=== PATIENT | male | born 1970 | race Caucasian/White ===

== ENCOUNTER 2017-09-19 15:07 | Emergency (ER) | payer MEDICAID ==
[~2017-09-19] VITALS: Ht 172.7 cm; Wt 61.7 kg
[~2017-09-19 15:07] MED LIST: ASPIRIN ADULT L81 M5 PO; DIA5 PO; FERROUS SULFAT325 M2 PO; GLIPIZIDE10 MG PO; GLU500 PO; METFORMIN HCL850 MG PO; PRAVASTATIN SOD20 M1 PO; VITAMIN D2400 I1 PO; ZESTRIL5 MG PO; [UNRECOGNIZED DRUG - OTHER] PO
[2017-09-19 15:08] VITALS: Ht 172.7 cm; Wt 61.7 kg
[2017-09-19 15:28] VITALS: BP 145/86
== END 2017-09-19 16:54 | disposition home or self-care (01) ==
LOC: ED 15:07
DX: S61.213A Laceration without foreign body of left middle finger without damage to nail, initial encounter (principal); I10 Essential (primary) hypertension; E11.9 Type 2 diabetes mellitus without complications; E78.00 Pure hypercholesterolemia, unspecified; W22.8XXA Striking against or struck by other objects, initial encounter; Y93.39 Activity, other involving climbing, rappelling and jumping off; Y99.8 Other external cause status; Y92.89 Other specified places as the place of occurrence of the external cause
CPT/HCPCS: 90715; A4570; J2001; J3490

== ENCOUNTER 2020-05-22 21:59 | Emergency (ER) | payer MEDICAID ==
[~2020-05-22] VITALS: Ht 167.6 cm; Wt 65.8 kg
[~2020-05-22 21:59] MED LIST changes: +BLOOD GLUCOSE1 EAC3 MC; +BLOOD LANCETS1 EACH TOP; +FORTAMET500 M1 PO; +TEST STRIPS1 EACH MC
[2020-05-22 22:15] VITALS: Ht 167.6 cm; Wt 65.8 kg
[2020-05-22 23:39] LABS: microscopic required? NO
[2020-05-22 23:48] LABS: BASOPHIL % 0.6 % (0-2); PLATELET COUNT 291 x10^3mcL (130-400); RED CELL DISTRIBUTION WIDTH 13.6 % (11.5-14.5)
[2020-05-22 23:52] LABS: UA SPECIFIC GRAVITY <=1.005 (1.005-1.035); urine erythrocyte NEGATIVE (NEGATIVE)
[2020-05-23 00:05] LABS: CALCIUM 8.3 mg/dL (8.5-10.1); CARBON DIOXIDE 29.6 mmol/L (21-32); CHLORIDE SERUM 100 mmol/L (98-107); CREATININE SERUM 0.9 mg/dL (0.7-1.3); GFR1 > 60 mL/min; GLUCOSE SERUM 310 mg/dL (74-106); POTASSIUM SERUM 4.1 mmol/L (3.5-5.1); SODIUM SERUM 135 mmol/L (136-145)
[2020-05-23 00:09] LABS: AMPHETAMINE QUAL UR NONE DETECTED (See below)
[2020-05-23 00:09] LABS: ALBUMIN 3.1 g/dL (3.4-5.0); ALKALINE PHOSPHATASE 117 U/L (46-116); ALT/SGPT 40 U/L (16-63); AST/SGOT 16 U/L (15-37); TOTAL PROTEIN, SERUM 6.8 g/dL (6.4-8.2)
[2020-05-23 00:49] VITALS: BP 132/71
== END 2020-05-22 22:30 | disposition home or self-care (01) ==
LOC: ED 21:59
PROVIDERS: Emergency Medicine
DX: G43.909 Migraine, unspecified, not intractable, without status migrainosus (principal); E11.65 Type 2 diabetes mellitus with hyperglycemia; R20.2 Paresthesia of skin; I10 Essential (primary) hypertension; E78.00 Pure hypercholesterolemia, unspecified
CPT/HCPCS: 82962; J1200; J1885; J2765; J7030